=== PATIENT | male | born 2000 | race Caucasian/White ===

== ENCOUNTER 2021-12-30 17:29 | Emergency (ER) | payer BC, OTHER ==
[2021-12-30] MEDS ORDERED: Sulfameth/Trimethoprim DS 800-160mg TAB ONE (17:44)
[2021-12-30] MEDS ORDERED: Boostrix 0.5 ML (Tdap) VIAL ONE (17:44)
== END 2021-12-30 17:58 | disposition home or self-care (01) ==
LOC: BURERS 17:29
DX: S61.211A Laceration without foreign body of left index finger without damage to nail, initial encounter (principal); S61.213A Laceration without foreign body of left middle finger without damage to nail, initial encounter; Z23 Encounter for immunization; W26.8XXA Contact with other sharp object(s), not elsewhere classified, initial encounter
CPT/HCPCS: 12001; 90471; 90715